=== PATIENT | female | born 1965 | race Caucasian/White ===

== ENCOUNTER 2017-09-20 13:15 | Emergency (ER) | payer MEDICAID ==
[~2017-09-20] VITALS: Ht 154.9 cm; Wt 47.6 kg
[~2017-09-20 13:15] MED LIST: ALPRAZOLAM; ANTABUSE250 M1; ATIVAN1 MG PO; BUSPAR30 MG; CARISOPRODOL; CLONAZEPAM 1 MG1 M1; CLONIDINE0.1; IBUPROFEN 800800 M1 PO; KEFLEX250 MG PO; MELATONIN5 M1 PO; NAPROXEN375 MG PO; PRISTIQ50 MG PO; PROAIR HFA8.5 GM INH; REMERON 30 MG T30 M1; REMERON15 MG PO; REMERON45 MG; XANAX 1 MG TABLE1 MG PO; XANAX XR1 MG PO; ZOFRAN4 MG PO; ZPAK PO
[2017-09-20 13:39] LABS: URINE BILIRUBIN NEGATIVE (Negative); URINE BLOOD NEGATIVE (Negative); URINE CLARITY CLEAR; URINE COLOR YELLOW; URINE GLUCOSE-RANDOM NEGATIVE (Negative); URINE KETONES NEGATIVE (Negative); URINE LEUKOCYTES-REFLEX NEGATIVE (Negative); URINE NITRITE-REFLEX NEGATIVE (Negative); URINE PROTEIN NEGATIVE (Negative); URINE SPECIFIC GRAVITY <= 1.005 (1.005-1.030); URINE UROBILINOGEN 0.2 E.U./dl (0.2-1.0)
[2017-09-20 13:46] LABS: AMP/METHAMP Negative (Negative); BARBITURATES Negative (Negative); BENZODIAZEPINES POSITIVE (Negative); COCAINE Negative (Negative); METHADONE Negative (Negative); OPIATES Negative (Negative); PCP Negative (Negative); THC POSITIVE (Negative)
[2017-09-20 13:55] LABS: ABSOLUTE EOSINOPHILS 0.1 thou/uL (0.0-0.7); ABSOLUTE LYMPHOCYTES 2.4 thou/uL (0.8-5.3); ABSOLUTE MONOCYTES 0.5 thou/uL (0.0-1.2); ABSOLUTE NEUTROPHILS 4.8 thou/uL (1.6-8.1); BASOPHILS 0.4 %; EOSINOPHILS 0.9 %; HEMATOCRIT 38.9 % (37.0-47.0); HEMOGLOBIN 13.3 gm/dL (12.0-15.0); LYMPHOCYTES 30.6 %; MCH 33.5 pg (26.0-34.0); MCHC 34.1 g/dL (28.0-37.0); MCV 98.1 fL (80.0-100.0); MONOCYTES 5.9 %; MPV 7.5 fl. (7.2-11.1); NUCLEATED RBCS 0 /100WBC; PLATELET COUNT* 257 thou/uL (150-400); POLYS 62.2 %; RBC 3.97 mil/uL (4.20-5.00); RDW-CV 13.3 % (10.5-14.5); WBC 7.8 thou/uL (4.0-11.0)
[2017-09-20 14:02] LABS: CALCIUM 7.6 mg/dL (8.5-10.1); CREATININE 0.6 mg/dL (0.6-1.3); POTASSIUM 3.2 mmol/L (3.5-5.1)
[2017-09-20 14:07] LABS: ALBUMIN 3.6 g/dL (3.4-5.0); TOTAL BILIRUBIN 0.5 mg/dL (<0.1-1.0); TOTAL PROTEIN 6.9 g/dL (6.4-8.2)
[2017-09-20 14:12] LABS: ACETAMINOPHEN < 2 ug/mL (10-30); ALCOHOL 322 mg/dL (<10); SALICYLATE 3.8 mg/dL (2.8-20.0)
[2017-09-20 14:49] VITALS: BP 128/79
== END 2017-09-20 14:50 | disposition home or self-care (01) ==
LOC: M.ERS 13:15
PROVIDERS: Emergency Medicine Emergency Medical Services
DX: F10.129 Alcohol abuse with intoxication, unspecified (principal); F43.10 Post-traumatic stress disorder, unspecified; F32.9 Major depressive disorder, single episode, unspecified; F41.9 Anxiety disorder, unspecified; F17.210 Nicotine dependence, cigarettes, uncomplicated; F12.10 Cannabis abuse, uncomplicated; Z88.5 Allergy status to narcotic agent; Y90.8 Blood alcohol level of 240 mg/100 ml or more

== ENCOUNTER 2019-03-01 20:32 | Emergency (ER) | payer MEDICAID ==
[~2019-03-01] VITALS: Ht 154.9 cm; Wt 49.0 kg
[2019-03-01] MEDS ORDERED: REMERON15 MG PO (20:42)
[2019-03-01] MEDS ORDERED: LIBRIUM PO (20:43)
[2019-03-01 21:09] LABS: ABSOLUTE EOSINOPHILS 0.1 thou/uL (0.0-0.7); ABSOLUTE LYMPHOCYTES 3.7 thou/uL (0.8-5.3); ABSOLUTE MONOCYTES 0.6 thou/uL (0.0-1.2); ABSOLUTE NEUTROPHILS 5.7 thou/uL (1.6-8.1); BASOPHILS 0.4 %; HEMATOCRIT 42.4 % (37.0-47.0); HEMOGLOBIN 14.7 gm/dL (12.0-15.0); LYMPHOCYTES 36.5 %; MCH 33.7 pg (26.0-34.0); MCHC 34.8 g/dL (28.0-37.0); MONOCYTES 5.8 %; MPV 7.9 fl. (7.2-11.1); NUCLEATED RBCS 0 /100WBC; PLATELET COUNT* 269 thou/uL (150-400); POLYS 56.3 %; RBC 4.37 mil/uL (4.20-5.00); RDW-CV 12.6 % (10.5-14.5); WBC 10.1 thou/uL (4.0-11.0)
[2019-03-01 21:18] LABS: CALCIUM 8.8 mg/dL (8.5-10.1); CREATININE 0.6 mg/dL (0.6-1.3); POTASSIUM 3.6 mmol/L (3.5-5.1)
[2019-03-01 22:58] VITALS: BP 148/74
[2019-03-05] MEDS ORDERED: ALEVE220 MG PO (13:33)
[2019-03-05] MEDS ORDERED: TRAMADOL 50 MG50 MG PO (13:34)
== END 2019-03-01 22:58 | disposition home or self-care (01) ==
LOC: M.ERS 20:32
PROVIDERS: Emergency Medicine
DX: S52.592A Other fractures of lower end of left radius, initial encounter for closed fracture (principal); F32.9 Major depressive disorder, single episode, unspecified; F41.9 Anxiety disorder, unspecified; F17.210 Nicotine dependence, cigarettes, uncomplicated; Z88.5 Allergy status to narcotic agent; Y08.89XA Assault by other specified means, initial encounter; Y93.89 Activity, other specified; Y92.89 Other specified places as the place of occurrence of the external cause; Y99.8 Other external cause status

== ENCOUNTER → 2019-03-11 | Day surgery (SDC) | payer MEDICAID ==
[~2019-03-11] MED LIST changes: +ALEVE220 MG PO; +LIBRIUM PO; +TRAMADOL 50 MG50 MG PO; +ULTRAM 50MG TAB50 MG PO
--- NOTE | ~2019-03-11 | OP ---
[address] [address] OPERATIVE REPORT Name: NUBIA BARBOSA Room: [facility]#: [id number] Admission: 03/11/19 Attend Phys: Wilson Mcghee DO Discharge: Date of : 61 Report #: [id number] THIS REPORT FOR: //name// CC: Kay Mcghee PREOPERATIVE DIAGNOSIS: Left intra-articular distal radius fracture. POSTOPERATIVE DIAGNOSIS: Left 3-part intraarticular distal radius fracture. PROCEDURE: 1. Open reduction and internal fixation, left 3-part intra-articular distal radius fracture. 2. Physician-directed, fluoroscopy less than 1 hour. SURGEON: Wilson Mcghee DO DIRECTOR OF MATH: Jacinto Elizondo DO ANESTHESIA: General. ANTIBIOTICS: Ancef IV preoperatively. FLUIDS: 800 mL lactated Ringer's. ESTIMATED BLOOD LOSS: 10 mL. COMPLICATIONS: None. SPECIMENS: None. DRAINS: None. CONDITION OF PATIENT: Stable to PACU. IMPLANTS: [place] distal radius volar locking plate with locking screws distally, 2 cortical screws proximally in the most distal screw within the shaft and a unicortical locking screw. INDICATIONS FOR PROCEDURE: This patient is a 53-year-old female who presented to [facility] for operative treatment of her distal radius fracture. I again went over with her the plan for surgery. Reasoning for risks and complications associated. Please see clinic note for full details of discussions had not only then, but today as well in the preoperative area. She acknowledged and accepted risks and complications and gave consent to proceed. DESCRIPTION OF PROCEDURE: I marked the left upper extremity in the presence of [address] [address] OPERATIVE REPORT Name: NUBIA BARBOSA Room: [facility].#: [id number] Admission: 03/11/19 Attend Phys: Wilson Mcghee DO Discharge: Date of : 61 Report #: [id number] the operative team members. Everyone agreed this was correct. She was taken back to the operative suite where a briefing was performed indicating correct patient, procedure, site, antibiotics and that implants were present and sterile. All team members agreed. She was transferred over to the operative table in supine position, well-padded and secured. General anesthetic administered. A well-padded tourniquet was placed proximally on the left upper extremity, which was then sterilely prepped and draped in standard fashion. Timeout was performed indicating correct patient, procedure, site, antibiotics and that implants were present and sterile. All team members agreed. Marked out our incision for a modified volar [place] approach. Esmarched the extremity and insufflated the tourniquet to 250 mmHg. Scalpel was taken through skin, careful dissection down to the FCR tendon sheath incised proximally and distally with tendon taken ulnarly. We then incised through the fascia of the FPL muscle belly with the FPL muscle belly was taken ulnarly and the radial artery identified and protected through the remainder of the case, sharply incised the pronator quadratus off the radial border and taken ulnarly visualized our fracture site. She had a separate lunate fragment. An intra-articular split as well as a radial styloid component. We were able to use a [place] to help reduce this and restore her angle and pinned into position with temporary K wires. Multiplanar C-arm imaging showed that we had reduced our distal radius that point in time, we placed the plate making sure that our plate was going to capture our lunate facet fragment buttress this nicely having the plate as far ulnar as possible and as far distal as safely possible at the watershed line. Once we pinned this into position and confirmed our plate. It was appropriate on multiplanar imaging, we then first began by drilling and placing distal locking screws. Once we had measured distally. We subtracted 2 mm from this. Once placing all those screws with the exception of the styloid screw. We then placed our first shaft screw to help regain some volar tilt and this had adequate purchase. We then brought back in C-arm on multiplanar C-arm imaging showed that our hardware placement was excellent, fracture reduction was excellent. All screws were extraarticular and capturing our fragment nicely. At that point in time, we then used fluoroscopy to help drilled our screw placed through our most proximal cortical screw. Our most distal screw within the shaft. We made a unicortical locker. Due to her having the metaphyseal bone in that area. All hardware was in place at this time. Multiplanar C-arm imaging showed excellent reduction of the fracture, placement of all hardware. This included taking the wrist through flexion, extension, radial deviation, ulnar deviation and there was no instability of our construct. We also took an axial views showing appropriate length of screws. We saved the images and dismissed the C-arm, let down tourniquet, total time was 39 minutes. Maintained hemostasis. The radial artery was palpable with no injury and the hand was warm and well perfused and thoroughly irrigated with normal saline. Closure was with 3-0 Monocryl buried deep subcutaneous and a running 3-0 nylon suture. Debriefing performed where we confirmed the procedure, blood loss and that all counts were correct and final. All team members agreed. Sterile dressings and splint were applied consisting of Xeroform gauze, 4 x 4s, soft roll, [place] [id number] OPERATIVE REPORT Name: NUBIA BARBOSA Room: [facility].#: [id number] Admission: 03/11/19 Attend Phys: Wilson Mcghee DO Discharge: Date of : 61 Report #: [id number] splint and Cristi wrap. The splint was applied so that she will have opposition of the thumb to the pinky and will be able to flex all fingers at the MCP joints. She was extubated and transferred off the operating table, taken to PACU, stable. POSTOPERATIVE COURSE AND EVALUATION: She did not have any family members or anyone that she wished for me to contact. A friend was picking her up and she told that the friend will be staying with her for at least 24 hours. She was resting in PACU with stable vital signs, pain controlled. Neurovascularly, she was intact in all of her extremities. No change compared to preoperative exam and all tendons appear to be functioning appropriately. DVT prophylaxis will be pharmacological and mechanical. Nonweightbearing encouraged range of motion at the fingers, elbow and shoulder. I instructed her on how to do this. Maintain the dressing clean, dry and intact. Call anytime with questions or concerns. Otherwise, we will see her on scheduled followup. By: [id number] Mcghee DO /sarah
== END | disposition home or self-care (01) ==
LOC: M.SUR 06:30
DX: S52.572A Other intraarticular fracture of lower end of left radius, initial encounter for closed fracture (principal); F32.9 Major depressive disorder, single episode, unspecified; F41.9 Anxiety disorder, unspecified; F17.210 Nicotine dependence, cigarettes, uncomplicated; Z98.890 Other specified postprocedural states; Z88.8 Allergy status to other drugs, medicaments and biological substances; Z79.899 Other long term (current) drug therapy; X58.XXXA Exposure to other specified factors, initial encounter; Y93.89 Activity, other specified; Y92.89 Other specified places as the place of occurrence of the external cause; Y99.8 Other external cause status